=== PATIENT | female | born 1980 | race Two or more races ===

== ENCOUNTER 2025-04-26 16:21 | Emergency (ER) | payer OTHER ==
[~2025-04-26] VITALS: Ht 172.7 cm; Wt 68.0 kg
[2025-04-26 16:30] VITALS: BP 103/67; O2SAT 97
[2025-04-26] MEDS ORDERED: KETOROLAC TROMETHAMINE 30 MG VIAL IM STA (17:03)
[2025-04-26] MEDS ORDERED: DEXAMETHASONE SODIUM PHOSPHATE 4 MG/ML VIAL IM STA (17:04)
[2025-04-26] MEDS ORDERED: KETOROLAC TROMETHAMINE 30 MG VIAL ONE (18:13)
[2025-04-26] MEDS ORDERED: DEXAMETHASONE SODIUM PHOSPHATE 4 MG/ML VIAL ONE (18:13)
[2025-04-26 19:01] LABS: URINE APPEARANCE Clear; URINE BILIRRUBIN Negative (NEGATIVE); URINE BLOOD Negative; URINE COLOR Yellow; URINE GLUCOSE Negative (NEGATIVE); URINE KETONE Negative (NEGATIVE); URINE LEUKOCYTE Negative; URINE NITRATE Negative; URINE PROTEIN Negative (NEGATIVE); URINE UROBILINOGEN 0.2 E.U./dl
[2025-04-26 19:05] LABS: URINE BACTERIA 1047.5 uL (0.0-1933); URINE EPITHELIAL CELLS 11.9 uL (0.0-38.8); URINE RBC 3.2 uL (0.0-20.8); URINE WBC 33.5 uL (0.0-23.2)
[2025-04-26 19:12] LABS: URINE CAST 0.14 uL (0.0-1.40)
[2025-04-26 19:27] LABS: BASO % 0.9 % (0.1-1.2); EOS # 0.20 (0.04-0.54); EOS % 3.4 % (0.7-7.0); LYMPH # 1.38 (1.18-3.74); LYMPH % 23.5 % (19.3-53.1); MEAN PLATELET VOLUME 10.40 fl (9.4-12.4); MONO # 0.42 (0.24-0.82); MONO % 7.2 % (4.7-12.5); NEUT # 3.79 (1.56-6.13); NEUT % 64.7 % (34.0-71.1); RED CELL DISTRIBUTION WIDTH 13.9 % (11.6-14.4)
[2025-04-26 20:15] LABS: BUN CREA RATIO 16.0 (7.0-25.0); CREATININE SERUM 0.98 mg/dL (0.55-1.02); GFR 62.24; GLUCOSE FASTING 107.0 mg/dL (65-100); OSMOLALITY SERUM 287.0 MOSM/KG (275-295)
[2025-04-26] MEDS ORDERED: DICY20TA PO (22:34)
[2025-04-26] MEDS ORDERED: BACTRIM DS TAB1 EACH PO (22:34)
[2025-04-26] MEDS ORDERED: PEPCID AC20 MG PO (22:34)
== END 2025-04-26 23:28 | disposition home or self-care (01) ==
LOC: ER 16:21
PROVIDERS: General Practice
DX: R10.A2 Flank pain, left side (principal); R35.0 Frequency of micturition